=== PATIENT | male | born 1985 | race Caucasian/White ===

== ENCOUNTER 2017-08-07 17:44 | Emergency (ER) | payer SELFPAY ==
[~2017-08-07 17:44] MED LIST: Z.0.NO CURRENT MEDS
[2017-08-07 17:47] VITALS: BP 157/77; PULSE 77; RESP 20; TEMP 98.7; O2SAT 98
[2017-08-07] MEDS ORDERED: TYLE325T PO (17:55)
--- NOTE | 2017-08-07 18:37 | RADRPT ---
EXAM DATE/TIME: 08/07/2017 18:23 [place] COMPARISON: No previous studies available for comparison. INDICATIONS : Fever MEDICAL HISTORY : None. SURGICAL HISTORY : None. ENCOUNTER: Initial ACUITY: 3 days PAIN SCORE: 0/10 LOCATION: Bilateral chest FINDINGS: A single view of the chest demonstrates the lungs to be symmetrically aerated without evidence of mas s, infiltrate or effusion. The cardiomediastinal contours are unremarkable. Osseous structures are intact. CONCLUSION: No acute disease. Ar Anguiano MD on August 07, 2017 at 18:34 Board Certified Radiologist. This report was verified electronically.
[2017-08-07] MEDS ORDERED: ALBUAER3 INH (18:54)
[2017-08-07] MEDS ORDERED: AZIT250T3 PO (18:54)
--- NOTE | 2017-08-07 18:54 | PD ---
HPI Chief Complaint: Fever Time Seen by Provider: 18:04 Travel History International Travel<30 days: No Contact w/Intl Traveler<30days: No Traveled to known affect area: No History of Present Illness HPI This is a 32-year-old male here with complaint of fever for the last 3 days. Temperatures of up to 101. Associating symptoms are cough with left rib pain. Patient is a smoker. Denies chest pain, palpitations, shortness of breath. Symptom severity is moderate. No aggravating factors. Fevers reduced with Tylenol. No sick contacts or foreign travel. PFSH Social History Alcohol Use: No Tobacco Use: Yes (1 PK) Allergies-Medications (Allergen,Severity, Reaction): Coded Allergies: No Known Allergies (Verified Allergy, Mild, 08/07/17) Reported Meds & Prescriptions Reported Meds & Active Scripts Active Reported Tylenol (Acetaminophen) 325 Mg Tab 650 Mg PO Q4H PRN No Current Meds (Miscellaneous Medication) Misc Review of Systems Except as stated in HPI: all other systems reviewed are Neg General / Constitutional: Positive: Fever Eyes: No: Visual changes HENT: No: Headaches Cardiovascular: No: Chest Pain or Discomfort Respiratory: Positive: Cough, No: Shortness of Breath Gastrointestinal: No: Abdominal Pain Genitourinary: No: Dysuria Musculoskeletal: No: Pain Skin: No Rash Neurologic: No: Weakness Physical Exam Narrative GENERAL: Alert and well-appearing 32-year-old male. SKIN: Warm and dry. HEAD: Normocephalic. EYES: No scleral icterus. No injection or drainage. ENT: No pharyngeal erythema. No tonsillar hypertrophy or exudate. Uvula is midline. Airways patent. Mucous members are moist. NECK: Supple, trachea midline. No meningismus. CARDIOVASCULAR: Regular rate and rhythm without murmurs, gallops, or rubs. RESPIRATORY: Breath sounds equal bilaterally. No accessory muscle use. Rhonchorous cough and rhonchi noted on the left GASTROINTESTINAL: Abdomen soft, non-tender, nondistended. MUSCULOSKELETAL: No cyanosis, or edema. BACK: Nontender without obvious deformity. No CVA tenderness. Data Data Last Documented VS Vital Signs Date Time Temp Pulse Resp B/P (MAP) Pulse Ox O2 Delivery O2 Flow Rate FiO2 08/07/17 17:47 98.7 77 20 157/77 (103) 98 Orders Orders Influenzae A/B Antigen (08/07/17 18:00) Chest, Single Ap (08/07/17 ) MDM Medical Decision Making Medical Screen Exam Complete: Yes Emergency Medical Condition: Yes Differential Diagnosis Influenza, pneumonia, bronchitis Narrative Course 32-year-old male here with rhonchorous cough and reported fever for 3 days. Influenza screening is negative. Chest x-ray is negative. He is nontoxic appearing. He will be treated for bronchitis. Diagnosis Primary Impression: Bronchitis Referrals: [facility] Additional Instructions: Medication as directed. Tylenol and ibuprofen for pain or fever. Stay well hydrated by drinking plenty of fluids such as water and Gatorade. Follow-up with your primary doctor. Return if you have new or worsening symptoms. Scripts Albuterol 8.5 GM Inh (Proair Hfa 8.5 GM Inh) 90 Mcg/Act Aer 2 PUFF INH Q4-6H Y for SHORTNESS OF BREATH, #1 INHALER 0 Refills 108 mcg/actuation Prov: Cindy Morris 08/07/17 Azithromycin (Azithromycin) 250 Mg Tab 250 MG PO DIRECTED for Infection, #6 TAB 0 Refills Take 2 tabs (500 mg) on day 1 then 1 tab daily x 4 days. Prov: Cindy Morris 08/07/17 Disposition: 01 DISCHARGE HOME Condition: Stable Cindy Morris August 07, 2017 18:54
== END 2017-08-07 19:02 | disposition home or self-care (01) ==
LOC: PHEFT 17:44
DX: J40 Bronchitis, not specified as acute or chronic (principal); F17.200 Nicotine dependence, unspecified, uncomplicated
CPT/HCPCS: 71045; 87804; 99284

== ENCOUNTER 2017-08-11 15:57 | Emergency (ER) | payer SELFPAY ==
[~2017-08-11] VITALS: Ht 190.5 cm; Wt 68.0 kg
[~2017-08-11 15:57] MED LIST changes: +ALBUAER3 INH; +AZIT250T3 PO; +TYLE325T PO
[2017-08-11 16:00] VITALS: BP 138/70; PULSE 85; RESP 16; TEMP 99.4; O2SAT 98
[2017-08-11] MEDS ORDERED: CIPROFLOXACIN 0.3% OPTH SOLN 2.5 ML BTL RIGHT EYE ONE (16:45)
--- NOTE | 2017-08-11 16:56 | PD ---
HPI Chief Complaint: Eye Problems/Injury Time Seen by Provider: 16:16 Travel History International Travel<30 days: No Contact w/Intl Traveler<30days: No Traveled to known affect area: No History of Present Illness HPI This is a 32-year-old male here with right eye redness and irritation 2 days. He reports he accidentally scratched the eye with his fingernail. He continue to wear his contact lenses after the injury. He now has constant irritation and tearing from the right eye. Symptom severity is moderate. He denies visual acuity changes. No aggravating or alleviating factors. PFSH Past Medical History Medical History: Denies Significant Hx Diminished Hearing: No Tetanus Vaccination: < 5 Years Influenza Vaccination: No Past Surgical History Surgical History: No Previous Surgery Social History Alcohol Use: No Tobacco Use: Yes (1 ppd) Substance Use: No Allergies-Medications (Allergen,Severity, Reaction): Coded Allergies: No Known Allergies (Verified Allergy, Mild, 08/11/17) Reported Meds & Prescriptions Reported Meds & Active Scripts Active Proair Hfa 8.5 GM Inh (Albuterol Sulfate) 90 Mcg/Act Aer 2 Puff INH Q4-6H PRN 108 mcg/actuation Azithromycin 250 Mg Tab 250 Mg PO DIRECTED Take 2 tabs (500 mg) on day 1 then 1 tab daily x 4 days. Reported Tylenol (Acetaminophen) 325 Mg Tab 650 Mg PO Q4H PRN No Current Meds (Miscellaneous Medication) Misc Review of Systems Except as stated in HPI: all other systems reviewed are Neg General / Constitutional: No: Fever Eyes: Positive: Redness, Foreign Body Sensation HENT: No: Headaches Cardiovascular: No: Chest Pain or Discomfort Respiratory: No: Shortness of Breath Gastrointestinal: No: Abdominal Pain Physical Exam Narrative GENERAL: Alert and well-appearing 32-year-old male SKIN: Warm and dry. HEAD: Normocephalic. EYES: Right eye moderately injected. Pupils equal, round, reactive to light. Cornea is clear. EOMs intact. No fluorescein dye uptake. IOP WNL. Visual acuity L: 20/30, R:20/70 (WITHOUT CONTACT LENS) NECK: Supple, trachea midline. No JVD or lymphadenopathy. CARDIOVASCULAR: Regular rate and rhythm without murmurs, gallops, or rubs. RESPIRATORY: Breath sounds equal bilaterally. No accessory muscle use. GASTROINTESTINAL: Abdomen soft, non-tender, nondistended. MUSCULOSKELETAL: No cyanosis, or edema. BACK: Nontender without obvious deformity. No CVA tenderness. Data Data Last Documented VS Vital Signs Date Time Temp Pulse Resp B/P (MAP) Pulse Ox O2 Delivery O2 Flow Rate FiO2 08/11/17 16:00 99.4 85 16 138/70 (92) 98 Orders Orders Ciprofloxacin 0.3% Opth Soln (Ciloxan 0. (08/11/17 16:45) MDM Medical Decision Making Medical Screen Exam Complete: Yes Emergency Medical Condition: Yes Differential Diagnosis Conjunctivitis, contact lens keratitis, corneal abrasion, iritis Narrative Course 32-year-old male with right eye irritation 2 days. She reports irritation started after scratching the eye with his fingernail. On exam there is no fluorescein dye uptake. He denies any visual acuity changes in the eye. He is not currently wearing contact lens in the affected eye making visual acuity difficult. He will be treated for presumed conjunctivitis/corneal abrasion instructed to follow-up with an ophthalmic surgeon for recheck in the next 1-2 days. He agrees to this plan. Diagnosis Primary Impression: Conjunctivitis Qualified Codes: H10.9 - Unspecified conjunctivitis Referrals: Aliza Cartwright MD[facility] Additional Instructions: Do not wear contact lens in the affected eye Instill 2 drops into the right eye 4 times a day. Follow-up with the ophthalmic surgeon Disposition: 01 DISCHARGE HOME Condition: Stable Cindy Morris August 11, 2017 16:56
== END 2017-08-11 17:34 | disposition home or self-care (01) ==
LOC: PHEFT 15:57
DX: H10.9 Unspecified conjunctivitis (principal); F17.200 Nicotine dependence, unspecified, uncomplicated
CPT/HCPCS: 99283